=== PATIENT | female | born 1965 | race Caucasian/White ===

== ENCOUNTER → 2019-01-04 07:50 | Outpatient (CLI) | payer OTHER, SELFPAY ==
--- NOTE | 2019-01-04 | DI.MG.S_ITS ---
BILATERAL DIGITAL SCREENING MAMMOGRAM 3D/2D WITH CAD: 01/04/2019 CLINICAL: Routine screening. Comparison is made to exam dated: 05/04/2016 [facility]. The tissue of both breasts is heterogeneously dense. This may lower the sensitivity of mammography. Current study was also evaluated with a Computer Aided Detection (CAD) system. There is an oval focal asymmetry with an indistinct margin in the right breast at 4 o'clock middle depth. This is more prominent. No other significant masses, calcifications, or other findings are seen in either breast. IMPRESSION: INCOMPLETE: NEEDS ADDITIONAL IMAGING EVALUATION The oval focal asymmetry in the right breast is indeterminate. Additional views with possible ultrasound are recommended. This exam was interpreted at Station ID: [id number]. NOTE: For mammograms, a report in lay terms will be sent to the patient. Approximately 15% of breast malignancies will not be visualized mammographically. In the management of a palpable breast mass, a negative mammogram must not discourage biopsy of a clinically suspicious lesion. Electronically Signed By: Susu rodriguez/:01/04/2019 12:08:53 letter sent: Additional Imaging Needed ACR BI-RADS Category 0: Incomplete 3340F
== END ==
PROVIDERS: PCP Family Medicine; Visit Provider Family Medicine
DX: Z12.31 Encounter for screening mammogram for malignant neoplasm of breast (principal); R92.8 Other abnormal and inconclusive findings on diagnostic imaging of breast
CPT/HCPCS: 77063; 77067

== ENCOUNTER → 2019-01-24 14:05 | Outpatient (CLI) | payer OTHER, SELFPAY ==
--- NOTE | 2019-01-24 | DI.MG.S_ITS ---
UNILATERAL RIGHT DIGITAL DIAGNOSTIC MAMMOGRAM 3D/2D WITH ADDITIONAL VIEWS: 01/24/2019 CLINICAL: Additional evaluation requested from prior study. Comparison is made to exams dated: 01/04/2019 mammogram and 05/04/2016 mammogram - [facility]. The tissue of right breast is heterogeneously dense. This may lower the sensitivity of mammography. Previously noted oval focal asymmetry with an indistinct margin in the right breast at 4 o'clock middle depth on comparison screening mammogram of 01/04/19 has the appearance of benign fibroglandular tissues on additional views. IMPRESSION: INCOMPLETE: NEEDS ADDITIONAL IMAGING EVALUATION Previously noted oval focal asymmetry with an indistinct margin in the right breast at 4 o'clock middle depth on comparison screening mammogram of 01/04/19 has the appearance of benign fibroglandular tissues on additional views. A targeted ultrasound is recommended and will be performed immediately following this exam. This exam was interpreted at Station ID: [id number]. NOTE: For mammograms, a report in lay terms will be sent to the patient. Approximately 15% of breast malignancies will not be visualized mammographically. In the management of a palpable breast mass, a negative mammogram must not discourage biopsy of a clinically suspicious lesion. Electronically Signed By: Yordan Partida M.D. ecl/:01/24/2019 15:21:18 ACR BI-RADS Category 0: Incomplete [id number]
--- NOTE | 2019-01-24 | DI.US.S_ITS ---
LIMITED ULTRASOUND OF RIGHT BREAST: 01/24/2019 CLINICAL: Patient returns today to evaluate a focal asymmetry in the right breast. Comparison is made to exams dated: 01/24/2019 mammogram, 01/04/2019 mammogram, 01/04/2019 mammogram, and 05/04/2016 mammogram - [facility]. Color flow and real-time ultrasound of the right breast 2-4 o'clock region were performed. Abel scale images of the real-time examination were reviewed. No underlying breast mass or abnormality is identified. There is no ultrasound correlate for the previously noted oval focal asymmetry with an indistinct margin in the right breast at 4 o'clock middle depth on comparison screening mammograms of 01/04/19, which also resolved on additional diagnostic mammogram views performed earlier today 01/24/19. IMPRESSION: NEGATIVE There is no sonographic evidence of malignancy in the imaged areas of the medial right breast as described above. Return to annual screening mammography schedule is recommended. The patient is advised to monitor her breasts and to return sooner for re-evaluation should she feel anything grow or change. This exam was interpreted at Station ID: [id number]. Electronically Signed By: Yordan Partida M.D. ecl/:01/24/2019 15:23:06 letter sent: Normal Exam Ultrasound BI-RADS: 1 Negative
== END ==
PROVIDERS: PCP Family Medicine; Visit Provider Family Medicine
DX: R92.8 Other abnormal and inconclusive findings on diagnostic imaging of breast (principal); N64.89 Other specified disorders of breast
CPT/HCPCS: 76642; 77065; G0279